=== PATIENT | female | born 1990 | race African-American/Black ===

== ENCOUNTER 2017-04-16 06:14 | Emergency (ER) | payer OTHER ==
[~2017-04-16] VITALS: Ht 162.6 cm; Wt 88.0 kg
[2017-04-16 06:54] VITALS: BP 113/87
== END 2017-04-16 08:15 | disposition left against medical advice (07) ==
LOC: ER 06:14
DX: Z53.21 Procedure and treatment not carried out due to patient leaving prior to being seen by health care provider (principal)

== ENCOUNTER 2020-11-08 22:00 | Emergency (ER) | payer MEDICAID, OTHER ==
[~2020-11-08] VITALS: Ht 162.6 cm; Wt 82.0 kg
[2020-11-08] MEDS ORDERED: BACITRACIN ZINC OINT UDPKT TOP ONE (23:00)
[2020-11-08] MEDS ORDERED: TETANUS, DIPHTHERIA, PERTUSSIS VAC/PF 0.5ML (>7YR OLD) IM ONE (23:00)
[2020-11-08] MEDS ORDERED: LORAZEPAM 0.5MG TABLET PO ONE (23:00)
[2020-11-08] MEDS ORDERED: ACETAMINOPHEN 325MG TABLET PO ONE (23:00)
[2020-11-08] MEDS ORDERED: LIDOCAINE HCL/PF 1% 10 MG/ML 5ML VIAL INFIL ONE (23:00)
[2020-11-09] MEDS ORDERED: CLON0.5T4 MT (00:05)
[2020-11-09 00:27] VITALS: BP 138/78
[2020-11-10] MEDS ORDERED: BO1 TP (03:06)
[2020-11-10] MEDS ORDERED: IBUP-2029 MT (03:06)
== END 2020-11-09 00:28 | disposition home or self-care (01) ==
LOC: ER 22:00
DX: S01.312A Laceration without foreign body of left ear, initial encounter (principal); Y04.2XXA Assault by strike against or bumped into by another person, initial encounter; Y93.89 Activity, other specified; Y92.89 Other specified places as the place of occurrence of the external cause
CPT/HCPCS: 12011; 90715; 99284; J3490

== ENCOUNTER 2020-11-09 19:56 | Emergency (ER) | payer MEDICAID ==
[~2020-11-09] VITALS: Ht 162.6 cm; Wt 82.0 kg
[~2020-11-09 19:56] MED LIST: CLON0.5T4 MT
[2020-11-10] MEDS ORDERED: LORAZEPAM 0.5MG TABLET PO ONE (01:15)
[2020-11-10] MEDS ORDERED: ACETAMINOPHEN 325MG TABLET PO ONE (01:15)
[2020-11-10] MEDS ORDERED: BACITRACIN 15GM TUBE TOP ONE (01:15)
[2020-11-10] MEDS ORDERED: BO1 TP (03:06)
[2020-11-10] MEDS ORDERED: IBUP-2029 MT (03:06)
[2020-11-10 03:16] VITALS: BP 118/69
== END 2020-11-10 06:51 | disposition home or self-care (01) ==
LOC: ER 19:56
DX: S09.8XXA Other specified injuries of head, initial encounter (principal); F12.10 Cannabis abuse, uncomplicated; Y08.89XA Assault by other specified means, initial encounter; Y93.89 Activity, other specified; Y92.89 Other specified places as the place of occurrence of the external cause; Y99.8 Other external cause status; Z79.899 Other long term (current) drug therapy
CPT/HCPCS: 81025; 99284

== ENCOUNTER 2020-11-25 19:49 | Emergency (ER) | payer MEDICAID ==
[~2020-11-25] VITALS: Ht 162.6 cm; Wt 82.0 kg
[~2020-11-25 19:49] MED LIST changes: +BO1 TP; +IBUP-2029 MT
[2020-11-25 20:12] VITALS: BP 134/80
== END 2020-11-25 20:52 | disposition home or self-care (01) ==
LOC: ER 19:49
DX: Z48.02 Encounter for removal of sutures (principal)
CPT/HCPCS: 99281; Z7610

== ENCOUNTER 2020-12-17 10:40 | Emergency (ER) | payer MEDICAID ==
[~2020-12-17] VITALS: Ht 162.6 cm; Wt 86.0 kg
[2020-12-17] MEDS ORDERED: IBUPROFEN 600MG TABLET PO STA (10:58)
[2020-12-17] MEDS ORDERED: CYCL10TA7 MT (12:16)
[2020-12-17] MEDS ORDERED: NAPR-677 MT (12:16)
[2020-12-17 12:30] VITALS: BP 121/76
== END 2020-12-17 12:32 | disposition home or self-care (01) ==
LOC: ER 10:40
DX: M54.6 Pain in thoracic spine (principal); M25.511 Pain in right shoulder; F12.10 Cannabis abuse, uncomplicated
CPT/HCPCS: 71045; 73030; 81025; 99284

== ENCOUNTER 2023-08-27 09:55 | Emergency (ER) | payer MEDICAID, OTHER ==
[~2023-08-27] VITALS: Ht 162.6 cm; Wt 98.0 kg
[~2023-08-27 09:55] MED LIST changes: +CYCL10TA21 MT; +NAPR-677 MT
[2023-08-27 10:14] VITALS: O2SAT 100
[2023-08-27 11:25] LABS: BASOPHILS % 0.4 % (0.0-2.0); EOSINOPHILS % 1.4 % (0.0-5.0); HEMATOCRIT. 34.9 % (36.0-48.0); HEMOGLOBIN. 11.9 g/dL (12.0-16.0); MEAN CORPUSCULAR HEMOGLOBIN 29.2 pg (28.0-32.0); MEAN CORPUSCULAR HGB CONC 34.2 g/dL (31.0-37.0); MEAN CORPUSCULAR VOLUME 85.5 fL (81.0-99.0); MEAN PLATELET VOLUME 7.9 fl (7.4-10.4); MONOCYTES % 6.7 % (2.0-8.0); NEUTROPHILS % 64.5 % (40.0-76.0); PLATELET 361 x1000/uL (130-400); RED BLOOD CELL COUNT 4.08 mill/uL (4.2-5.4); RED CELL DISTRIBUTION WIDTH 14.2 % (11.6-14.6); WHITE BLOOD COUNT 7.8 x1000/uL (4.5-11.0)
[2023-08-27] MEDS: MORPHINE SULFATE 4 MG/ML INJ (FOR IV/IM USE) IV STA (11:25)
[2023-08-27 11:31] LABS: CARBON DIOXIDE 23 mEq/L (21-32); CHLORIDE 105 mEq/L (98-107); POTASSIUM 3.3 mEq/L (3.5-5.1); SODIUM 137 mEq/L (136-145)
[2023-08-27 11:32] LABS: CALCIUM 9.1 mg/dL (8.7-10.4)
[2023-08-27 11:36] LABS: CREATININE 0.6 mg/dL (0.6-1.0); PROTHROMBIN TIME 10.7 sec (9.6-11.0)
[2023-08-27 11:37] LABS: GLUCOSE 76 mg/dL (70-105); UREA NITROGEN BLOOD 7 mg/dL (9-23)
[2023-08-27 12:08] LABS: ALANINE AMINOTRANSFERASE 8 IU/L (10-49); ALBUMIN 4.2 g/dL (3.2-4.8); ASPARTATE AMINOTRANSFERASE 14 IU/L (<34); BILIRUBIN DIRECT 0.1 mg/dL (<=3.0); BILIRUBIN TOTAL 0.4 mg/dL (0.1-1.0); PROTEIN TOTAL 7.4 g/dL (6.0-8.3)
[2023-08-27 12:35] LABS: B-HCG QUANTITATIVE 34159 mIU/mL (<3)
[2023-08-27 14:25] VITALS: BP 140/72; PULSE 72; RESP 18; TEMP 98.6
== END 2023-08-27 14:27 | disposition home or self-care (01) ==
LOC: ER 10:07
DX: O9A.212 Injury, poisoning and certain other consequences of external causes complicating pregnancy, second trimester (principal); O24.419 Gestational diabetes mellitus in pregnancy, unspecified control; F12.90 Cannabis use, unspecified, uncomplicated; Z3A.15 15 weeks gestation of pregnancy
CPT/HCPCS: 99285; 96374; 76805; 80076; 80048; 84702; 83690; 85025; 85610; 36415; J2270